=== PATIENT | female | born 1960 | race Caucasian/White ===

== ENCOUNTER → 2016-09-23 | Outpatient (CLI) | payer OTHER ==
--- NOTE | 2016-09-23 13:47 | BD ---
EXAMINATION TYPE: MG DEXA axial skeleton. DATE OF EXAM: 09/23/2016 COMPARISON: NONE CLINICAL HISTORY: Postmenopausal female. Height: 68.5 IN Weight: 237 LBS FRAX RISK QUESTIONS: Alcohol (3 or more units per day): NO Family History (Parent hip fracture): NO Glucocorticoids (More than 3mos): PT TAKES METHOTREXATE FOR 3 YRS (Ex: prednisone, prednisolone, methylprednisolone, dexamethasone, and hydrocortisone). History of Fracture in Adulthood: YES TOE/FINGER AGE [age] Secondary Osteoporosis: 1. Type 1 Diabetes: NO 2. Hyperthyroidism: NO 3. Menopause before 45: YES AGE 31 4. Malnutrition: NO 5. Chronic liver disease: NO Rheumatoid Arthritis: NO Current Tobacco Use: NO RISK FACTORS HISTORY OF: Active: YES Postmenopausal woman: AGE 31 PARTIAL HYSTERECTOMY MEDICATIONS: Prednisone or other steroids: PT TAKES METHOTREXATE FOR 3 YEARS How Lon YRS Additional Medications: METHOTREXATE, FOLIC ACID, METPROL, HcTZ,LORTAB EXAM MEASUREMENTS: Bone mineral densitometry was performed using the [employer] System. Bone mineral density as measured about the Lumbar spine is: ----- L1-L4(G/cm2): 1.757 T Score Values are as follows: ----- L2: 3.7 ----- L3: 5.1 ----- L4: 6.3 ----- L1-L4: 4.8 Bone mineral density BASELINE Bone mineral density about the R hip (g/cm2): 1.147 Bone mineral density about the L hip (g/cm2): 1.113 T Score values are as follows: -----R Neck: 0.8 -----L Neck: 0.5 -----R Total: 1.3 -----L Total: 1.2 Bone mineral density BASELINE IMPRESSION: NORMAL STUDY. 10 YEAR FRACTURE RISK: MAJOR OSTEOPOROTIC FRACTURE RISK: 8.6% HIP FRACTURE RISK: 0.1% NOTE: T-SCORE=SD OF THE YOUNG ADULT MEAN.
--- NOTE | 2016-09-24 08:53 | MM ---
Reason for exam: screening (asymptomatic). Last mammogram was performed 4 years ago. History: Patient is postmenopausal. Family history of premenopausal breast cancer in mother at age 39 and breast cancer in 3 maternal aunts. Physical Findings: A clinical breast exam by your physician is recommended on an annual basis and results should be correlated with mammographic findings. MG Screening Mammo w CAD Bilateral CC and MLO view(s) were taken. Prior study comparison: October 05, 2012, bilateral digital screening mammo w/CAD. October 23, 2010, bilateral digital screening mammo w/CAD. There are scattered fibroglandular densities. There is no discrete abnormality. No significant changes when compared with prior studies. ASSESSMENT: Negative, BI-RAD 1 RECOMMENDATION: Routine screening mammogram of both breasts in 1 year.
== END | disposition home or self-care (01) ==
LOC: RADMAMWWP 09:12
PROVIDERS: ATTEND Family Medicine
DX: Z12.31 Encounter for screening mammogram for malignant neoplasm of breast (principal); Z13.820 Encounter for screening for osteoporosis
CPT/HCPCS: 77080; G0202

== ENCOUNTER → 2017-05-19 | Outpatient (CLI) | payer OTHER ==
--- NOTE | 2017-05-19 16:59 | CT ---
EXAMINATION TYPE: CT sinus wo con DATE OF EXAM: 05/19/2017 COMPARISON: NONE HISTORY: Chronic sinusitis, cough CT DLP: 581.4 mGycm. Automated Exposure Control for Dose Reduction was Utilized. TECHNIQUE: CT scan of the sinuses is performed without contrast, axial images are obtained, coronal r eformatted images are also reviewed. FINDINGS: The paranasal sinuses are remarkable for mucosal thickening in the bilateral maxillary sin uses, ethmoid air cells and sphenoid sinus, no air-fluid levels. Ostiomeatal unit nearly obstructed b ilaterally due to soft tissue thickening. There is a jose a bullosa on the left. There is a deviated nasal septum. Visualized portion of mastoid air cells show no abnormal opacification. The globes are intact bilate rally. IMPRESSION: Findings suggest chronic sinusitis
--- NOTE | 2017-05-20 12:46 | XR ---
EXAMINATION TYPE: XR chest 2V DATE OF EXAM: 05/19/2017 COMPARISON: Prior chest x-ray 06/02/2015 HISTORY: Chronic sinusitis, cough TECHNIQUE: Frontal and lateral views of the chest are obtained. FINDINGS: Within the right mid lung there is a nodular density present measuring approximately 1 cm i n size superimposed over the anterior fourth rib. This is likely stable. There is no pleural effusio n or pneumothorax seen. The cardiac silhouette size is within normal limits. Patient is rotated. Th e osseous structures are intact. Surgical clips present in the upper abdomen. IMPRESSION: No acute cardiopulmonary process. Stable lung nodule.
== END | disposition home or self-care (01) ==
LOC: RADCTMAIN 16:18
PROVIDERS: ATTEND Physician Assistant
DX: R91.1 Solitary pulmonary nodule (principal); J01.90 Acute sinusitis, unspecified
CPT/HCPCS: 70486; 71046

== ENCOUNTER → 2018-01-19 | Outpatient (CLI) | payer OTHER ==
--- NOTE | 2018-01-20 13:38 | MM ---
Reason for exam: screening (asymptomatic). Last mammogram was performed 1 year and 4 months ago. History: Patient is postmenopausal. Family history of premenopausal breast cancer in mother at age 39 and breast cancer in 3 maternal aunts. Physical Findings: A clinical breast exam by your physician is recommended on an annual basis and results should be correlated with mammographic findings. MG Screening Mammo w CAD Bilateral CC and MLO view(s) were taken. Prior study comparison: September 23, 2016, bilateral MG screening mammo w CAD. October 05, 2012, bilateral digital screening mammo w/CAD. There are scattered fibroglandular densities. There are benign appearing round calcifications. There is no discrete abnormality. ASSESSMENT: Benign, BI-RAD 2 RECOMMENDATION: Routine screening mammogram of both breasts in 1 year.
== END | disposition home or self-care (01) ==
LOC: RADMAMWWP 16:18
PROVIDERS: ATTEND Family Medicine
DX: Z12.31 Encounter for screening mammogram for malignant neoplasm of breast (principal)
CPT/HCPCS: 77067

== ENCOUNTER 2019-09-26 12:28 | Emergency (ER) | payer BC, OTHER ==
[2019-09-26 12:35] VITALS: BP 160/70; PULSE 68; RESP 16; TEMP 98.8
[2019-09-26] MEDS ORDERED: LIDOCAINE 1% INJ 10MG/ML (20 ML MDV) SQ ONE (12:56)
--- NOTE | 2019-09-26 13:14 | ED ---
Fall HPI - General Chief Complaint: Fall Stated Complaint: fall, head injury Time Seen by Provider: 09/26/19 12:49 Source: patient Mode of arrival: wheelchair - History of Present Illness Initial Comments: Patient is a 59-year-old female presenting to the emergency department after a slip and fall and has a laceration to her left side of her face. Patient states she was getting her grandson a bath and there was a lot of bubbles in the bathroom, she went to pull the plug is why she is now down and fell forward hitting the left side of her face on a knob in the shower. Patient states she did not lose consciousness, she has a mild headache over the laceration. She denies any changes in vision, nausea, vomiting. Patient denies being on blood thinners. Bleeding is controlled at this time. She states her last tetanus vaccine was over 10 years ago. She has no further complaints. - Related Data Home Medications Medication Instructions Recorded Confirmed Aspirin 325 mg PO DAILY 10/12/14 06/06/15 Folic Acid 1 mg PO DAILY 10/12/14 06/05/15 Hydrocodone/Acetaminophen [Lortab 1 tab PO DIRECTED PRN 10/12/14 06/05/15 7.5-325 mg Tablet] Lisinopril-Hctz 20-25 mg 1 tab PO DAILY 10/12/14 06/05/15 [Zestoretic 20-25] metHOTREXate sodium [Methotrexate] 12.5 mg PO SA 10/12/14 06/05/15 DULoxetine HCL [Cymbalta] 60 mg PO HS 06/05/15 06/05/15 Krill Oil 500 mg PO DAILY 06/05/15 06/05/15 Metoprolol (Unknown Dose) 25 mg PO BID 06/05/15 06/06/15 Nitroglycerin Sl Tabs [Nitrostat] 0.4 mg PO DIRECTED PRN 06/05/15 06/05/15 Orphenadrine [Norflex] 100 mg PO Q12H PRN 06/05/15 06/05/15 Previous Rx's Medication Instructions Recorded Ibuprofen [Motrin] 600 mg PO Q6HR PRN #20 tab 10/12/14 Atorvastatin [Lipitor] 40 mg PO DAILY #60 tab 06/06/15 Allergies Allergy/AdvReac Type Severity Reaction Status Date / Time No Known Allergies Allergy Verified 09/26/19 12:35 Review of Systems ROS Statement: Those systems with pertinent positive or pertinent negative responses have been documented in the HPI. ROS Other: All systems not noted in ROS Statement are negative. Past Medical History Past Medical History: Hypertension, Rheumatoid Arthritis (RA) Additional Past Medical History / Comment(s): LOWER BACK RA History of Any Multi-Drug Resistant Organisms: None Reported Past Surgical History: Cholecystectomy, Hysterectomy Past Psychological History: No Psychological Hx Reported Past Alcohol Use History: Occasional General Exam - General Exam Comments Initial Comments: GENERAL: Patient is well-developed and well-nourished. Patient is nontoxic and in no acute distress. HEAD: Atraumatic, normocephalic. EYES: Pupils equal round and reactive to light, extraocular movements intact, sclera anicteric, conjunctiva are normal. Eyelids were unremarkable. ENT: TMs normal, nares patent, oropharynx clear without exudates. Moist mucous membranes. NECK: Normal range of motion, supple without lymphadenopathy or JVD. LUNGS: Unlabored respirations. Breath sounds clear to auscultation bilaterally and equal. No wheezes rales or rhonchi. HEART: Regular rate and rhythm without murmurs, rubs or gallops. ABDOMEN: Soft, nontender, normoactive bowel sounds. No guarding, no rebound. No masses appreciated. : Deferred MUSCULOSKELETAL: Normal extremities with adequate strength and normal range of motion, no pitting or edema. No clubbing or cyanosis. NEUROLOGICAL: Patient is alert and oriented x 3. Motor and sensory are also intact. Cranial nerves II through XII grossly intact. Normal speech, normal gait. Symmetrical smile. PSYCH: Normal mood, normal affect. SKIN: Warm, Dry, normal turgor, no rashes. Patient has a 6 cm laceration to the left temporal area, no active bleeding. Limitations: no limitations Course Vital Signs 09/26/19 12:33 Temperature 98.8 F Pulse Rate 68 Respiratory 16 Rate Blood Pressure 160/70 O2 Sat by Pulse 94 L Oximetry Medical Decision Making - Medical Decision Making Patient is a 59-year-old female presenting for a 6cm laceration on the left side of her face after slipping forward while kneeling down. There was no loss of consciousness, no vomiting, no changes in vision. She does have a very mild headache around the laceration. Patient's tetanus vaccine was updated today. Patient's wound was irrigated, closed with 10, 5-0 sutures, performed by MARGARITA Watkins. Patient tolerated procedure well. Patient is stable for discharge. She will have sutures removed in 7-10 days. She will follow-up with her PCP. Return parameters were discussed with the patient she verbalized understanding. Case discussed with Dr. Bustos. Disposition Clinical Impression: Fall, Laceration without foreign body of left cheek and temporomandibular area, initial encounter Disposition: HOME SELF-CARE Condition: Stable Instructions (If sedation given, give patient instructions): Care For Your Stitches (ED) Additional Instructions: Please return to the Emergency Department if symptoms worsen or any other concerns. Sutures need to be removed in 7-10 days. Keep area clean and dry. Is patient prescribed a controlled substance at d/c from ED?: No Referrals: Tro Galvan MD [Primary Care Provider] - 1-2 days
[2019-09-26] MEDS ORDERED: DIPH,PERTUS(ACELL)TETVAC-LF 0.5 ML VIAL IM ONE (13:38)
== END 2019-09-26 14:14 | disposition home or self-care (01) ==
LOC: EC 12:28
DX: S01.412A Laceration without foreign body of left cheek and temporomandibular area, initial encounter (principal); M06.9 Rheumatoid arthritis, unspecified; I10 Essential (primary) hypertension; Z79.82 Long term (current) use of aspirin; Z79.899 Other long term (current) drug therapy; W01.198A Fall on same level from slipping, tripping and stumbling with subsequent striking against other object, initial encounter; Y93.89 Activity, other specified; Y92.002 Bathroom of unspecified non-institutional (private) residence as the place of occurrence of the external cause; Z23 Encounter for immunization
CPT/HCPCS: 99283; 90471; 12014; 90715; J2001

== ENCOUNTER → 2021-08-02 | Outpatient (CLI) | payer BC ==
--- NOTE | 2021-08-03 15:15 | MM ---
Reason for Exam: Screening (asymptomatic). Last mammogram was performed 3 year(s) and 7 month(s) ago. Patient History: Menarche at age 11. First Full-Term at age 27. Left ovary removed at age 31. Right ovary removed at age 31. Hysterectomy at age 31. Postmenopausal. Maternal aunt had breast cancer at or over age 50. Maternal aunt had breast cancer under age 50. Maternal aunt had breast cancer at or over age 50. Mother had breast cancer, age 39. Risk Values: Marleni 5 year model risk: 3.0%. NCI Lifetime model risk: 13.2%. Prior Study Comparison: 10/05/2012 Bilateral Screening Mammogram, [facility]. 09/23/2016 Bilateral Screening Mammogram, [facility]. 01/19/2018 Bilateral Screening Mammogram, [facility]. Tissue Density: There are scattered fibroglandular densities. Findings: Analyzed By CAD. NATURAL NIPPLE PLACEMENT ASKEW BILATERALLY...NIP PROFILE IMAGES TAKEN There is a benign calcification within the left breast. No suspicious spiculated or lobular masses, clusters of microcalcifications, architectural distortion, or other secondary signs to radiographically apparent. Overall Assessment: Benign, BI-RAD 2 Management: Screening Mammogram of both breasts in 1 year. A clinical breast exam by your physician is recommended on an annual basis and results should be correlated with mammographic findings. Electronically signed and approved by: Marcello Sherwood D.O. Radiologis
== END | disposition home or self-care (01) ==
LOC: RADMAMWWP 12:50
PROVIDERS: ATTEND Family Medicine
DX: Z12.31 Encounter for screening mammogram for malignant neoplasm of breast (principal); Z80.3 Family history of malignant neoplasm of breast; Z78.0 Asymptomatic menopausal state
CPT/HCPCS: 77067

== ENCOUNTER → 2023-05-19 | Outpatient (CLI) | payer BC ==
--- NOTE | 2023-05-20 09:52 | MM ---
Reason for Exam: Screening (asymptomatic). Last mammogram was performed 1 year(s) and 9 month(s) ago. Patient History: Menarche at age 11. First Full-Term at age 27. Left ovary removed at age 31. Right ovary removed at age 31. Hysterectomy at age 31. Postmenopausal. Maternal aunt had breast cancer at or over age 50. Maternal aunt had breast cancer under age 50. Maternal aunt had breast cancer at or over age 50. Mother had breast cancer, age 39. Risk Values: Marleni 5 year model risk: 3.2%. NCI Lifetime model risk: 12.4%. Prior Study Comparison: 09/23/2016 Bilateral Screening Mammogram, [facility]. 01/19/2018 Bilateral Screening Mammogram, [facility]. 08/02/2021 Bilateral MG screening mammo w CAD, [facility]. Tissue Density: The breasts are almost entirely fatty. Findings: Analyzed By CAD. There is no suspicious group of microcalcifications or new suspicious mass. Overall Assessment: Negative, BI-RAD 1 Management: Screening Mammogram of both breasts in [address] [facility] will attempt to contact patient to return for supplemental views and ultrasound if indicated. Patient should continue monthly self-breast exams. A clinical breast exam by your physician is recommended on an annual basis. This exam should not preclude additional follow-up of suspicious palpable abnormalities. Note on Marleni scores and lifetime risk: 1. A Marleni score greater than 3% is considered moderate risk. If this is the case, consider specialist referral to assess eligibility for a risk reducing agent. 2. If overall lifetime risk for the development of breast cancer is 20% or higher, the patient may qualify for future screening with alternating mammogram and breast MRI. Electronically signed and approved by: Junior Smith DO
== END | disposition home or self-care (01) ==
LOC: RADMAMWWP 16:17
PROVIDERS: ATTEND Family Medicine
DX: Z12.31 Encounter for screening mammogram for malignant neoplasm of breast (principal); Z80.3 Family history of malignant neoplasm of breast; Z78.0 Asymptomatic menopausal state
CPT/HCPCS: 77067

== ENCOUNTER 2023-07-25 09:08 | Emergency (ER) | payer BC ==
[2023-07-25 11:01] VITALS: TEMP 97.5
[2023-07-25 11:02] LABS: Basophils % (A) 2 %; Eosinophils % (A) 3 %; HCT 46.9 % (34.0-46.0); HGB 15.3 gm/dL (11.4-16.0); Lymphocytes % (A) 35 %; MCH 29.8 pg (25.0-35.0); MCHC 32.5 g/dL (31.0-37.0); MCV 91.5 fL (80.0-100.0); Mean Platelet Volume 8.8; Monocytes % (A) 7 %; Neutrophils % (A) 51 %; Platelet Count 202 k/uL (150-450); RBC 5.12 m/uL (3.80-5.40); WBC 6.3 k/uL (3.8-10.6)
[2023-07-25] MEDS: SODIUM CHLORIDE 0.9% 1,000 ML IV STA (11:02)
[2023-07-25] MEDS: ONDANSETRON 4 MG/2 ML VIAL IVP STA (11:02)
[2023-07-25 11:03] LABS: Basophils # (A) 0.1 k/uL (0-0.2); Eosinophils # (A) 0.2 k/uL (0-0.7); Lymphocytes # (A) 2.2 k/uL (1.0-4.8); Monocytes # (A) 0.5 k/uL (0-1.0); Neutrophils # (A) 3.2 k/uL (1.3-7.7)
[2023-07-25 11:14] LABS: Amorphous Sediment,Urine Occasional /hpf; Appearance,Urine Cloudy (Clear); Bacteria,Urine Occasional /hpf; Bilirubin,Urine Negative (Negative); Blood,Urine Negative (Negative); Color,Urine Colorless; Glucose,Urine (UA) Negative (Negative); INR 0.9 (<1.2); Ketones,Urine Negative (Negative); Leukocyte Esterase,Urine Large (Negative); Mucus,Urine Occasional /hpf; Nitrite,Urine Negative (Negative); PH, Urine 5.5 (5.0-8.0); Partial Thromboplastin Time 23.6 sec (22.0-30.0); Protein,Urine Negative (Negative); Prothrombin Time 10.1 sec (10.0-12.5); RBC,Urine 4 /hpf (0-5); Specific Gravity,Urine 1.016 (1.001-1.035); Squamous Epithelial Cell,Urine 17 /hpf (0-4); Urobilinogen,Urine <2.0 mg/dL (<2.0); WBC,Urine 20 /hpf (0-5)
--- NOTE | 2023-07-25 11:51 | CT ---
EXAMINATION TYPE: CT brain wo con CT DLP: 1162.4 mGycm, Automated exposure control for dose reduction was used. DATE OF EXAM: 07/25/2023 11:30 AM COMPARISON: 12/16/2009. CLINICAL INDICATION:Female, 63 years old with history of weakness, Weakness, dizziness, pt seeing spo ts when eyes closed TECHNIQUE: Brain: Axial CT images of the brain were obtained with coronal and sagittal reformats created and rev iewed. Contrast used: None. Oral contrast used: None. FINDINGS: Brain: Extra-axial spaces: No abnormal extra-axial fluid collections. Ventricular system: Dilatation in proportion to cerebral atrophy. Cerebral parenchyma: Cerebral atrophy. No acute intraparenchymal hemorrhage or mass effect. The gordillo -white junction is well differentiated. Scattered hypoattenuating areas are seen within the white mat ter. Cerebellum: Unremarkable. Mass effect: No evidence of midline shift. Intracranial vasculature: Atherosclerotic calcifications of the intracranial vessels. Soft tissues: Normal. Calvarium/osseous structures: No depressed skull fracture. Paranasal sinuses and mastoid air cells: Mild scattered paranasal sinus disease. Visualized orbits: Orbital contents are intact. IMPRESSION: 1. No acute intracranial process. 2. Nonspecific white matter changes, likely secondary to chronic small vessel ischemic disease.
--- NOTE | 2023-07-25 11:53 | XR ---
EXAMINATION TYPE: XR chest 2V DATE OF EXAM: 07/25/2023 11:33 AM CLINICAL INDICATION:Female, 63 years old with history of Weakness; [facility] COMPARISON: Chest radiographs from 10/30/2020 TECHNIQUE: XR chest 2V Frontal and lateral views of the chest. FINDINGS: Lungs/Pleura: There is no evidence of pleural effusion, focal consolidation, or pneumothorax. Pulmonary vascularity: Unremarkable. Heart/mediastinum: Cardiomediastinal silhouette is unremarkable. Musculoskeletal: No acute osseous pathology. IMPRESSION: No acute cardiopulmonary disease/process.
[2023-07-25 12:02] VITALS: RESP 16
[2023-07-25 12:03] LABS: ALT 37 U/L (4-34); AST 37 U/L (14-36); African American GFR (CKD) >90 (>60 ml/min/1.73 sqM); Albumin 3.8 g/dL (3.5-5.0); Alkaline Phosphatase 130 U/L (38-126); Anion Gap 2 mmol/L; Blood Urea Nitrogen 11 mg/dL (7-17); Calcium 8.8 mg/dL (8.4-10.2); Carbon Dioxide 30 mmol/L (22-30); Chloride 110 mmol/L (98-107); Glucose 75 mg/dL (74-99); NT-Pro-B-Type Natriuretic Pept 688 pg/mL; Non-African American GFR(CKD) >90 (>60 ml/min/1.73 sqM); Potassium 3.6 mmol/L (3.5-5.1); Sodium 142 mmol/L (137-145); Total Bilirubin 0.7 mg/dL (0.2-1.3); Total Protein 6.7 g/dL (6.3-8.2)
--- NOTE | 2023-07-25 13:09 | ED ---
General Adult HPI - General Chief complaint: Dizziness Stated complaint: lightheaded,ankle swelling Time Seen by Provider: 07/25/23 10:35 Source: patient, RN notes reviewed, old records reviewed Mode of arrival: ambulatory Limitations: no limitations - History of Present Illness Initial comments: Patient is a 63-year-old female presents emergency department with multiple nonspecific complaints. Was sent by PCP. Has noticed a 13 pound weight gain over the last 1 to 2 weeks. Some mild foot and ankle edema, as well as some lightheadedness that she had this morning. Also had some blurry vision this morning which is since resolved. Presents for further evaluation at this time. Denies any significant headache. States her head of occasionally feels light and she feels a coldness sensation over her forehead and upper legs. Denies any chest pain or shortness of breath. Denies abdominal pain, nausea, vomiting. States she believes she has a sinus infection that she does endorse some pressure and has a history of these. Presents for further evaluation at this time. Denies sore throat, cough. Denies fevers or chills. - Related Data Home Medications Medication Instructions Recorded Confirmed Lisinopril-Hctz 20-25 mg 1 tab PO DAILY 10/12/14 07/25/23 [Zestoretic 20-25] Aspirin 162.5 mg PO DAILY 07/25/23 07/25/23 Cyanocobalamin [Vitamin B-12] 500 mcg PO DAILY 07/25/23 07/25/23 Magnesium(Unknown Dose) 1 tab PO DAILY 07/25/23 07/25/23 Vitamin D3(Unknown Dose) 1 tab PO DAILY 07/25/23 07/25/23 Previous Rx's Medication Instructions Recorded Amoxic-Pot Clav 875-125Mg 1 tab PO Q12HR 10 Days #20 tab 07/25/23 [Augmentin 875-125] Allergies Allergy/AdvReac Type Severity Reaction Status Date / Time atorvastatin [From Lipitor] AdvReac Muscle pain Verified 07/25/23 10:49 ropinirole [From Requip] AdvReac Chest Pain Verified 07/25/23 10:49 Review of Systems ROS Statement: Those systems with pertinent positive or pertinent negative responses have been documented in the HPI. Review of Systems: CONST: Denies fever EYES: Denies blurry vision ENT: Denies nasal congestion C/V: Denies Chest pain RESP: Denies shortness of breath GI: Denies abdominal pain : Denies dysuria SKIN: Denies rash. MSK: Denies joint pain. NEURO: Denies headache ROS Other: All systems not noted in ROS Statement are negative. Past Medical History Past Medical History: Hypertension, Rheumatoid Arthritis (RA) Additional Past Medical History / Comment(s): LOWER BACK RA History of Any Multi-Drug Resistant Organisms: None Reported Past Surgical History: Cholecystectomy, Heart Catheterization, Hysterectomy Past Psychological History: No Psychological Hx Reported Smoking Status: Never smoker Past Alcohol Use History: Occasional Past Drug Use History: None Reported General Exam - General Exam Comments Initial Comments: General: Appears in no acute distress. HEAD: Normal with no signs of head trauma. EYES: PERRLA, EOMI, conjunctiva normal, no discharge. Pulls are 3 mm and equal bilaterally. ENT: Hearing grossly intact, normal oropharynx. RESPIRATORY: Clear breath sounds bilaterally. No wheezes, rales, or rhonchi. C/V: Regular rate and rhythm. S1 and S2 auscultated, mild dependent pitting edema in the bilateral lower extremities that is symmetrical, peripheral pulses 2+ and intact throughout ABD: Abd is soft, nontender, nondistended EXT: Normal range of motion, no obvious deformity SKIN: No rashes or lesions observed on exposed skin. NEURO: Alert and oriented x 4. Cranial nerves II-XII intact. No focal sensory or strength deficits. NIH of 0. GCS 15. Normal cerebellar function as evident by normal finger-nose testing and [id number] testing. Limitations: no limitations Course Vital Signs 07/25/23 07/25/23 07/25/23 09:24 10:02 11:49 Temperature 97.5 F L Pulse Rate 55 L 63 53 L Respiratory 20 18 16 Rate Blood Pressure 177/89 177/93 158/72 O2 Sat by Pulse 99 98 98 Oximetry 07/25/23 13:00 Temperature Pulse Rate 50 L Respiratory 16 Rate Blood Pressure 169/67 O2 Sat by Pulse 98 Oximetry Medical Decision Making - Medical Decision Making Was pt. sent in by a medical professional or institution (, PA, APPEALS ASSISTANT, urgent care, hospital, or fci...) When possible be specific @ -Sent by PCP for evaluation. Did you speak to anyone other than the patient for history (EMS, parent, family, police, friend...)? What history was obtained from this source @ -No Did you review nursing and triage notes (agree or disagree)? Why? @ -I reviewed and agree with nursing and triage notes Were old charts reviewed (outside hosp., previous admission, EMS record, old EKG, old radiological studies, urgent care reports/EKG's, fci records)? Report findings @ -No old charts were reviewed Differential Diagnosis (chest pain, altered mental status, abdominal pain women, abdominal pain men, vaginal bleeding, weakness, fever, dyspnea, syncope, headache, dizziness, GI bleed, back pain, seizure, CVA, palpatations, mental health, musculoskeletal)? @ -Differential Weakness: Hypoglycemia, shock, sepsis, hyponatremia, anemia, infection, RI, ETOH, adverse medicine reaction, overdose, stroke, this is not meant to be an all-inclusive list. EKG interpreted by me (3pts min.). @ -As above X-rays interpreted by me (1pt min.). @ -Chest x-ray reveals no obvious acute cardiopulmonary process. CT interpreted by me (1pt min.). @ -CT brain revealed no obvious acute intracranial process. Just chronic changes. U/S interpreted by me (1pt. min.). @ -None done What testing was considered but not performed or refused? (CT, X-rays, U/S, labs)? Why? @ -None What meds were considered but not given or refused? Why? @ -None Did you discuss the management of the patient with other professionals (professionals i.e. , PA, APPEALS ASSISTANT, lab, RT, psych nurse, social worker delinquency prevention, tap and die maker technician, teacher, information systems security officer, leather case finisher)? Give summary @ -No Was smoking cessation discussed for >3mins.? @ -No Was critical care preformed (if so, how long)? @ -No Were there social determinants of health that impacted care today? How? (Homel essness, low income, unemployed, alcoholism, drug addiction, transportation, low edu. Level, literacy, decrease access to med. care, assisted, rehab)? @ -No Was there de-escalation of care discussed even if they declined (Discuss DNR or withdrawal of care, Hospice)? DNR status @ -No What co-morbidities impacted this encounter? (DM, HTN, Smoking, COPD, CAD, Cancer, CVA, ARF, Chemo, Hep., AIDS, mental health diagnosis, sleep apnea, morbid obesity)? @ -None Was patient admitted / discharged? Hospital course, mention meds given and route, prescriptions, significant lab abnormalities, going to OR and other pertinent info. @ -Patient presents with sinus congestion as well and lightheadedness, and episode of blurry vision earlier, and some weird paresthesias which appear to have resolved. Was sent by PCP for evaluation. We discussed at length the workup with the patient we will obtain broad workup as well as CT brain. NIH is 0. No obvious focal deficits at this time. She was in agreement this plan. Vital signs are within acceptable limits. Patient's laboratory studies returned unremarkable. Urinalysis is contaminated. Troponin undetectable. BNP within normal limits for age. Very slightly elevated LFTs and alk phos which is insignificant borderline normal. Chest x- ray and CT brain revealed no obvious acute process. EKG shows no signs of acute ischemia. On reevaluation, patient is feeling somewhat improved. We discussed her workup. I have no clear etiology for current symptoms. It is possible her sinus infection is affecting her. Patient will be given a dose of a steroid. Recommended wrapping her lower extremities with Win bandages or obtaining compression socks for dependent edema. Strict follow-up with PCP. She was in agreement this plan. I did offer observation admission however she did decline and would like to go home. I instructed the patient to follow up with their PCP in the next 1-3 days. I explained that the patient should return to the emergency department if they experience any worsening symptoms. Strict return precautions were discussed with the patient. The patient expressed understanding of these instructions. I answered all questions that the patient had. The patient was discharged home in good condition with their prescriptions and follow up information. Undiagnosed new problem with uncertain prognosis? @ -No Drug Therapy requiring intensive monitoring for toxicity (Heparin, Nitro, Insulin, Cardizem)? @ -No Were any procedures done? @ -No Diagnosis/symptom? @ - Dependent edema, lightheadedness, sinus congestion Acute, or Chronic, or Acute on Chronic? @ -Acute Uncomplicated (without systemic symptoms) or Complicated (systemic symptoms)? @ -Complicated Side effects of treatment? @ -No Exacerbation, Progression, or Severe Exacerbation? @ -No Poses a threat to life or bodily function? How? (Chest pain, USA, RI, pneumonia, PE, COPD, DKA, ARF, appy, cholecystitis, CVA, Diverticulitis, Homicidal, Suicidal, threat to staff... and all critical care pts) @ -Unlikely - Lab Data Result diagrams: 07/25/23 10:35 07/25/23 10:35 Lab Results 07/25/23 07/25/23 07/25/23 Range/Units 10:35 10:35 10:35 WBC 6.3 (3.8-10.6) k/uL RBC 5.12 (3.80-5.40) m/uL Hgb 15.3 (11.4-16.0) gm/dL Hct 46.9 H (34.0-46.0) % MCV 91.5 (80.0-100.0) fL MCH 29.8 (25.0-35.0) pg MCHC 32.5 (31.0-37.0) g/dL RDW 13.0 (11.5-15.5) % Plt Count 202 (150-450) k/uL MPV 8.8 Neutrophils % 51 % Lymphocytes % 35 % Monocytes % 7 % Eosinophils % 3 % Basophils % 2 % Neutrophils # 3.2 (1.3-7.7) k/uL Lymphocytes # 2.2 (1.0-4.8) k/uL Monocytes # 0.5 (0-1.0) k/uL Eosinophils # 0.2 (0-0.7) k/uL Basophils # 0.1 (0-0.2) k/uL PT 10.1 (10.0-12.5) sec INR 0.9 (<1.2) APTT 23.6 (22.0-30.0) sec Sodium (137-145) mmol/L Potassium (3.5-5.1) mmol/L Chloride (98-107) mmol/L Carbon Dioxide (22-30) mmol/L Anion Gap mmol/L BUN (7-17) mg/dL Creatinine (0.52-1.04) mg/dL Est GFR (CKD-EPI)AfAm (>60 ml/min/1.73 sqM) Est GFR (CKD-EPI)NonAf (>60 ml/min/1.73 sqM) Glucose (74-99) mg/dL Plasma Lactic Acid Agustin (0.7-2.0) mmol/L Calcium (8.4-10.2) mg/dL Magnesium (1.6-2.3) mg/dL Total Bilirubin (0.2-1.3) mg/dL AST (14-36) U/L ALT (4-34) U/L Alkaline Phosphatase (38-126) U/L Troponin I (0.000-0.034) ng/mL NT-Pro-B Natriuret Pep pg/mL Total Protein (6.3-8.2) g/dL Albumin (3.5-5.0) g/dL TSH (0.465-4.680) mIU/L Urine Color Colorless Urine Appearance Cloudy H (Clear) Urine pH 5.5 (5.0-8.0) Ur Specific [place] 1.016 (1.001-1.035) Urine Protein Negative (Negative) Urine Glucose (UA) Negative (Negative) Urine Ketones Negative (Negative) Urine Blood Negative (Negative) Urine Nitrite Negative (Negative) Urine Bilirubin Negative (Negative) Urine Urobilinogen <2.0 (<2.0) mg/dL Ur Leukocyte Esterase Large H (Negative) Urine RBC 4 (0-5) /hpf Urine WBC 20 H (0-5) /hpf Ur Squamous Epith Cells 17 H (0-4) /hpf Amorphous Sediment Occasional H (None) /hpf Urine Bacteria Occasional H (None) /hpf Urine Mucus Occasional H (None) /hpf Influenza Type A (PCR) (Not Detectd) Influenza Type B (PCR) (Not Detectd) RSV (PCR) (Not Detectd) SARS-CoV-2 (PCR) (Not Detectd) 07/25/23 07/25/23 07/25/23 Range/Units 10:35 10:35 10:35 WBC (3.8-10.6) k/uL RBC (3.80-5.40) m/uL Hgb (11.4-16.0) gm/dL Hct (34.0-46.0) % MCV (80.0-100.0) fL MCH (25.0-35.0) pg MCHC (31.0-37.0) g/dL RDW (11.5-15.5) % Plt Count (150-450) k/uL MPV Neutrophils % % Lymphocytes % % Monocytes % % Eosinophils % % Basophils % % Neutrophils # (1.3-7.7) k/uL Lymphocytes # (1.0-4.8) k/uL Monocytes # (0-1.0) k/uL Eosinophils # (0-0.7) k/uL Basophils # (0-0.2) k/uL PT (10.0-12.5) sec INR (<1.2) APTT (22.0-30.0) sec Sodium 142 (137-145) mmol/L Potassium 3.6 (3.5-5.1) mmol/L Chloride 110 H (98-107) mmol/L Carbon Dioxide 30 (22-30) mmol/L Anion Gap 2 mmol/L BUN 11 (7-17) mg/dL Creatinine 0.62 (0.52-1.04) mg/dL Est GFR (CKD-EPI)AfAm >90 (>60 ml/min/1.73 sqM) Est GFR (CKD-EPI)NonAf >90 (>60 ml/min/1.73 sqM) Glucose 75 (74-99) mg/dL Plasma Lactic Acid Agustin 1.3 (0.7-2.0) mmol/L Calcium 8.8 (8.4-10.2) mg/dL Magnesium 2.0 (1.6-2.3) mg/dL Total Bilirubin 0.7 (0.2-1.3) mg/dL AST 37 H (14-36) U/L ALT 37 H (4-34) U/L Alkaline Phosphatase 130 H (38-126) U/L Troponin I <0.012 (0.000-0.034) ng/mL NT-Pro-B Natriuret Pep 688 pg/mL Total Protein 6.7 (6.3-8.2) g/dL Albumin 3.8 (3.5-5.0) g/dL TSH 2.280 (0.465-4.680) mIU/L Urine Color Urine Appearance (Clear) Urine pH (5.0-8.0) Ur Specific [place] (1.001-1.035) Urine Protein (Negative) Urine Glucose (UA) (Negative) Urine Ketones (Negative) Urine Blood (Negative) Urine Nitrite (Negative) Urine Bilirubin (Negative) Urine Urobilinogen (<2.0) mg/dL Ur Leukocyte Esterase (Negative) Urine RBC (0-5) /hpf Urine WBC (0-5) /hpf Ur Squamous Epith Cells (0-4) /hpf Amorphous Sediment (None) /hpf Urine Bacteria (None) /hpf Urine Mucus (None) /hpf Influenza Type A (PCR) (Not Detectd) Influenza Type B (PCR) (Not Detectd) RSV (PCR) (Not Detectd) SARS-CoV-2 (PCR) (Not Detectd) 07/25/23 Range/Units 10:49 WBC (3.8-10.6) k/uL RBC (3.80-5.40) m/uL Hgb (11.4-16.0) gm/dL Hct (34.0-46.0) % MCV (80.0-100.0) fL MCH (25.0-35.0) pg MCHC (31.0-37.0) g/dL RDW (11.5-15.5) % Plt Count (150-450) k/uL MPV Neutrophils % % Lymphocytes % % Monocytes % % Eosinophils % % Basophils % % Neutrophils # (1.3-7.7) k/uL Lymphocytes # (1.0-4.8) k/uL Monocytes # (0-1.0) k/uL Eosinophils # (0-0.7) k/uL Basophils # (0-0.2) k/uL PT (10.0-12.5) sec INR (<1.2) APTT (22.0-30.0) sec Sodium (137-145) mmol/L Potassium (3.5-5.1) mmol/L Chloride (98-107) mmol/L Carbon Dioxide (22-30) mmol/L Anion Gap mmol/L BUN (7-17) mg/dL Creatinine (0.52-1.04) mg/dL Est GFR (CKD-EPI)AfAm (>60 ml/min/1.73 sqM) Est GFR (CKD-EPI)NonAf (>60 ml/min/1.73 sqM) Glucose (74-99) mg/dL Plasma Lactic Acid Agustin (0.7-2.0) mmol/L Calcium (8.4-10.2) mg/dL Magnesium (1.6-2.3) mg/dL Total Bilirubin (0.2-1.3) mg/dL AST (14-36) U/L ALT (4-34) U/L Alkaline Phosphatase (38-126) U/L Troponin I (0.000-0.034) ng/mL NT-Pro-B Natriuret Pep pg/mL Total Protein (6.3-8.2) g/dL Albumin (3.5-5.0) g/dL TSH (0.465-4.680) mIU/L Urine Color Urine Appearance (Clear) Urine pH (5.0-8.0) Ur Specific [place] (1.001-1.035) Urine Protein (Negative) Urine Glucose (UA) (Negative) Urine Ketones (Negative) Urine Blood (Negative) Urine Nitrite (Negative) Urine Bilirubin (Negative) Urine Urobilinogen (<2.0) mg/dL Ur Leukocyte Esterase (Negative) Urine RBC (0-5) /hpf Urine WBC (0-5) /hpf Ur Squamous Epith Cells (0-4) /hpf Amorphous Sediment (None) /hpf Urine Bacteria (None) /hpf Urine Mucus (None) /hpf Influenza Type A (PCR) Not Detected (Not Detectd) Influenza Type B (PCR) Not Detected (Not Detectd) RSV (PCR) Not Detected (Not Detectd) SARS-CoV-2 (PCR) Not Detected (Not Detectd) - EKG Data -: EKG Interpreted by Me EKG Comments: 12-lead Electrocardiogram Interpretation Note EKG was reviewed and interpreted by myself. 12-lead ECG performed at 0941 is interpreted by me as revealing sinus bradycardia at a rate of 49 beats per minute. [place] is normal. OH interval is 166 ms, QRS duration is 102 ms, QTc is 409 ms.. There were no ST or T wave abnormalities to suggest myocardial ischemia or injury. R wave progression across the precordium was satisfactory. By my interpretation this EKG is non-diagnostic for acute ischemia. Disposition Clinical Impression: Dependent edema, Lightheadedness, Sinus congestion Disposition: HOME SELF-CARE Condition: Good Instructions (If sedation given, give patient instructions): Dizziness (ED) Prescriptions: Amoxic-Pot Clav 875-125Mg [Augmentin 875-125] 1 tab PO Q12HR 10 Days #20 tab Is patient prescribed a controlled substance at d/c from ED?: No Referrals: Tor Galvan MD [Primary Care Provider] - 1-2 days Time of Disposition: 13:09
[2023-07-25] MEDS: DEXAMETHASONE SOD PHOSPHATE 4 MG/ML 1 ML VIAL IVP STA (13:16)
[2023-07-25] MEDS: AMOXIC-POT CLAV 875-125MG 1 EACH TAB PO STA (13:16)
[2023-07-25 14:01] VITALS: BP 169/67; PULSE 50
== END 2023-07-25 13:30 | disposition home or self-care (01) ==
LOC: EC 09:08
DX: R42 Dizziness and giddiness (principal); R60.0 Localized edema; J34.89 Other specified disorders of nose and nasal sinuses; R00.1 Bradycardia, unspecified; Z88.8 Allergy status to other drugs, medicaments and biological substances
CPT/HCPCS: 36415; 93005; 83880; 80053; 83605; 83735; 84443; 84484; 85025; 85610; 85730; 81001; 87636; 71046; 70450; 99285; 96374; 96375; 96361; J1100; J2405

== ENCOUNTER 2023-10-01 14:22 | Observation (INO) | payer BC ==
--- NOTE | 2023-10-01 14:49 | ED ---
Arrhythmia/Palpitations HPI - General Source: patient, RN notes reviewed Mode of arrival: ambulatory Limitations: no limitations <Raisa Klein - Last Filed: 10/01/23 14:47> - General Source: patient, family, RN notes reviewed Mode of arrival: ambulatory Limitations: no limitations <Yair Goyal - Last Filed: 10/01/23 20:14> - General Chief Complaint: Arrhythmia/Palpitations Stated Complaint: Heart Palpitations/Leg Swelling Time Seen by Provider: 10/01/23 14:47 - History of Present Illness Initial Comments: Quick Note: This is a 63-year-old female who presents to the emergency department for swelling in her extremities and palpitations. States that she has been dealing with swelling in her extremities and elevated blood pressure for several weeks. She has been following up with Dr. Olivas, cardiology and has tried different medications. They most recently tried her on Lasix, but states that the swelling was not going down. Yesterday she started to develop palpitations. Denies any chest pain or shortness of breath. (Raisa Klein) Patient is a 63-year-old female presenting to the emergency department with palpitations and edema. Patient has had recent problems with her blood pressure. Recently started on hydralazine and Lasix. Patient has been on pot assium replacement previously. Patient is having palpitations today. Patient did speak with her doctor, Dr. Flores who recommended she come to the emergency department. (Yair Goyal) - Related Data Home Medications Medication Instructions Recorded Confirmed Lisinopril-Hctz 20-25 mg 1 tab PO DAILY 10/12/14 10/01/23 [Zestoretic 20-25] Cyanocobalamin [Vitamin B-12] 500 mcg PO DAILY 07/25/23 10/01/23 Cholecalciferol (Vitamin D3) 50 mcg PO DAILY 10/01/23 10/01/23 [Vitamin D3 (50 Mcg = 2000 Iu)] Furosemide [Lasix] 20 mg PO DAILY 10/01/23 10/01/23 Magnesium 250 mg PO DAILY 10/01/23 10/01/23 Potassium Chloride ER [K-Dur 10] 10 meq PO DAILY 10/01/23 10/01/23 hydrALAZINE HCL [Apresoline] 50 mg PO TID-W/MEALS 10/01/23 10/01/23 Allergies Allergy/AdvReac Type Severity Reaction Status Date / Time atorvastatin [From Lipitor] AdvReac Muscle pain Verified 10/01/23 17:44 ropinirole [From Requip] AdvReac Chest Pain Verified 10/01/23 17:44 Review of Systems ROS Other: All systems not noted in ROS Statement are negative. <Raisa Klein - Last Filed: 10/01/23 14:47> ROS Other: All systems not noted in ROS Statement are negative. Constitutional: Denies: fever Eyes: Denies: eye pain ENT: Denies: ear pain Respiratory: Denies: dyspnea Cardiovascular: Reports: palpitations, edema. Denies: chest pain Endocrine: Reports: fatigue Gastrointestinal: Denies: abdominal pain <Yair Goyal - Last Filed: 10/01/23 20:14> ROS Statement: Those systems with pertinent positive or pertinent negative responses have been documented in the HPI. Past Medical History Past Medical History: Hypertension, Rheumatoid Arthritis (RA) Additional Past Medical History / Comment(s): LOWER BACK RA History of Any Multi-Drug Resistant Organisms: None Reported Past Surgical History: Cholecystectomy, Heart Catheterization, Hysterectomy Past Psychological History: No Psychological Hx Reported Smoking Status: Never smoker Past Alcohol Use History: Occasional Past Drug Use History: None Reported <Raisa Klein - Last Filed: 10/01/23 14:47> General Exam Limitations: no limitations <Raisa Klein - Last Filed: 10/01/23 14:47> Limitations: no limitations General appearance: alert, in no apparent distress Head exam: Present: normocephalic Eye exam: Present: normal appearance Neck exam: Present: normal inspection Respiratory exam: Present: normal lung sounds bilaterally Cardiovascular Exam: Present: regular rate, normal rhythm, normal heart sounds GI/Abdominal exam: Present: soft. Absent: tenderness Extremities exam: Present: pedal edema. Absent: calf tenderness Neurological exam: Present: alert Psychiatric exam: Present: normal affect, normal mood Skin exam: Present: normal color <Yair Goyal - Last Filed: 10/01/23 20:14> - General Exam Comments Initial Comments: Visual Physical Exam Vital signs reviewed General: Well-appearing, nontoxic, no acute distress. Head: Normocephalic, atraumatic Eyes: PERRLA, EOMI ENT: Airway patent Chest: Nonlabored breathing Skin: No visual rash, normal skin tone Neuro: Alert and oriented 3 Musculoskeletal: No gross abnormalities (Raisa Klein) Course Vital Signs 10/01/23 10/01/23 10/01/23 14:32 16:36 18:12 Temperature 98 F 97.7 F 98.5 F Pulse Rate 80 71 66 Respiratory 18 18 16 Rate Blood Pressure 132/61 153/71 151/61 O2 Sat by Pulse 98 96 99 Oximetry 10/01/23 19:57 Temperature Pulse Rate 71 Respiratory 16 Rate Blood Pressure 164/69 O2 Sat by Pulse 96 Oximetry EKG Findings - EKG Results: EKG: interpreted by ERMD (Nonspecific ST-T), sinus rhythm, normal axis, normal QRS <Yair Goyal - Last Filed: 10/01/23 20:14> Medical Decision Making <Raisa Klein - Last Filed: 10/01/23 14:47> - Lab Data Result diagrams: 10/01/23 14:50 10/01/23 14:50 <Yair Goyal - Last Filed: 10/01/23 20:14> - Medical Decision Making I performed the QuickNote portion of this chart. Signed Raisa Klein PA-C. (Raisa Klein) Was pt. sent in by a medical professional or institution ([facility], [facility], urgent care, hospital, or [facility]...) When possible be specific @ -No Did you speak to anyone other than the patient for history (EMS, parent, family, police, friend...)? What history was obtained from this source @ -Is present and also provides history of patient having problems with edema so severe for her that she has difficulty with walking Did you review nursing and triage notes (agree or disagree)? Why? @ -I reviewed and agree with nursing and triage notes Were old charts reviewed (outside hosp., previous admission, EMS record, old EKG, old radiological studies, urgent care reports/EKG's, [facility] records)? Report findings @ -No old charts were reviewed Differential Diagnosis (chest pain, altered mental status, abdominal pain women, abdominal pain men, vaginal bleeding, weakness, fever, dyspnea, syncope, headach e, dizziness, GI bleed, back pain, seizure, CVA, palpatations, mental health, musculoskeletal)? @ -Differential Palpitations Ventricular arrhythmias, atrial arrhythmias, myocardial infarction, anemia, thyrotoxicosis, electrolyte imbalance, hypokalemia, pulmonary embolism, pulmonary disease, drugs, alcohol, anxiety, stress.... This is not meant to be an all-inclusive list. EKG interpreted by me (3pts min.). @ -As above X-rays interpreted by me (1pt min.). @ -Chest x-ray shows no acute process CT interpreted by me (1pt min.). @ -None done U/S interpreted by me (1pt. min.). @ -None done What testing was considered but not performed or refused? (CT, X-rays, U/S, labs)? Why? @ -None What meds were considered but not given or refused? Why? @ -None Did you discuss the management of the patient with other professionals (professionals i.e. , PA, [facility], lab, RT, psych nurse, rn social work, bingo floater, teacher, anti air warfare operations officer, comp field case manager)? Give summary @ -Case discussed with practitioner Cindy Carl will admit covering Dr. Gant, who will admit for Dr. Galvan Was smoking cessation discussed for >3mins.? @ -No Was critical care preformed (if so, how long)? @ -No Were there social determinants of health that impacted care today? How? (Homelessness, low income, unemployed, alcoholism, drug addiction, transportation, low edu. Level, literacy, decrease access to med. care, care home, rehab)? @ -No Was there de-escalation of care discussed even if they declined (Discuss DNR or withdrawal of care, Hospice)? DNR status @ -No What co-morbidities impacted this encounter? (DM, HTN, Smoking, COPD, CAD, Cancer, CVA, ARF, Chemo, Hep., AIDS, mental health diagnosis, sleep apnea, morbid obesity)? @ -None Was patient admitted / discharged? Hospital course, mention meds given and route, prescriptions, significant lab abnormalities, going to OR and other pertinent info. @ -Patient reevaluated and still complains of leg edema without change. Patient does have continued mild leg edema. Still no calf tenderness. Patient still complains of palpitations. Patient does have hypokalemia and is uncomfortable with discharge home. Patient will be admitted. Admission orders written. Undiagnosed new problem with uncertain prognosis? @ -No Drug Therapy requiring intensive monitoring for toxicity (Heparin, Nitro, Insulin, Cardizem)? @ -No Were any procedures done? @ -No Diagnosis/symptom? @ -Palpitations, edema, hypokalemia Acute, or Chronic, or Acute on Chronic? @ -Acute, acute, acute Uncomplicated (without systemic symptoms) or Complicated (systemic symptoms)? @ -Default Side effects of treatment? @ -No Exacerbation, Progression, or Severe Exacerbation? @ -No Poses a threat to life or bodily function? How? (Chest pain, [place], [place], pneumonia, PE, COPD, DKA, ARF, appy, cholecystitis, CVA, Diverticulitis, Homicidal, Suicidal, threat to staff... and all critical care pts) @ -Threat to metabolism function (Yair Goyal) - Lab Data Lab Results 10/01/23 10/01/23 10/01/23 Range/Units 14:50 14:50 14:50 WBC 7.6 (3.8-10.6) k/uL RBC 5.14 (3.80-5.40) m/uL Hgb 15.1 (11.4-16.0) gm/dL Hct 46.2 H (34.0-46.0) % MCV 89.9 (80.0-100.0) fL MCH 29.3 (25.0-35.0) pg MCHC 32.6 (31.0-37.0) g/dL RDW 12.8 (11.5-15.5) % Plt Count 278 (150-450) k/uL MPV 8.4 Neutrophils % 58 % Lymphocytes % 33 % Monocytes % 5 % Eosinophils % 2 % Basophils % 1 % Neutrophils # 4.4 (1.3-7.7) k/uL Lymphocytes # 2.5 (1.0-4.8) k/uL Monocytes # 0.4 (0-1.0) k/uL Eosinophils # 0.1 (0-0.7) k/uL Basophils # 0.1 (0-0.2) k/uL PT 10.2 (10.0-12.5) sec INR 0.9 (<1.2) APTT 25.3 (22.0-30.0) sec Sodium 140 (137-145) mmol/L Potassium 2.9 L (3.5-5.1) mmol/L Chloride 104 (98-107) mmol/L Carbon Dioxide 25 (22-30) mmol/L Anion Gap 11 mmol/L BUN 13 (7-17) mg/dL Creatinine 0.73 (0.52-1.04) mg/dL Est GFR (CKD-EPI)AfAm >90 (>60 ml/min/1.73 sqM) Est GFR (CKD-EPI)NonAf 88 (>60 ml/min/1.73 sqM) Glucose 132 H (74-99) mg/dL Calcium 9.7 (8.4-10.2) mg/dL Magnesium 1.9 (1.6-2.3) mg/dL Total Bilirubin 1.0 (0.2-1.3) mg/dL AST 22 (14-36) U/L ALT 25 (4-34) U/L Alkaline Phosphatase 123 (38-126) U/L Troponin I (0.000-0.034) ng/mL NT-Pro-B Natriuret Pep 146 pg/mL Total Protein 6.8 (6.3-8.2) g/dL Albumin 4.3 (3.5-5.0) g/dL 10/01/23 Range/Units 14:50 WBC (3.8-10.6) k/uL RBC (3.80-5.40) m/uL Hgb (11.4-16.0) gm/dL Hct (34.0-46.0) % MCV (80.0-100.0) fL MCH (25.0-35.0) pg MCHC (31.0-37.0) g/dL RDW (11.5-15.5) % Plt Count (150-450) k/uL MPV Neutrophils % % Lymphocytes % % Monocytes % % Eosinophils % % Basophils % % Neutrophils # (1.3-7.7) k/uL Lymphocytes # (1.0-4.8) k/uL Monocytes # (0-1.0) k/uL Eosinophils # (0-0.7) k/uL Basophils # (0-0.2) k/uL PT (10.0-12.5) sec INR (<1.2) APTT (22.0-30.0) sec Sodium (137-145) mmol/L Potassium (3.5-5.1) mmol/L Chloride (98-107) mmol/L Carbon Dioxide (22-30) mmol/L Anion Gap mmol/L BUN (7-17) mg/dL Creatinine (0.52-1.04) mg/dL Est GFR (CKD-EPI)AfAm (>60 ml/min/1.73 sqM) Est GFR (CKD-EPI)NonAf (>60 ml/min/1.73 sqM) Glucose (74-99) mg/dL Calcium (8.4-10.2) mg/dL Magnesium (1.6-2.3) mg/dL Total Bilirubin (0.2-1.3) mg/dL AST (14-36) U/L ALT (4-34) U/L Alkaline Phosphatase (38-126) U/L Troponin I <0.012 (0.000-0.034) ng/mL NT-Pro-B Natriuret Pep pg/mL Total Protein (6.3-8.2) g/dL Albumin (3.5-5.0) g/dL Disposition <Raisa Klein - Last Filed: 10/01/23 14:47> Is patient prescribed a controlled substance at d/c from ED?: No Time of Disposition: 20:14 <Yair Goyal - Last Filed: 10/01/23 20:14> Clinical Impression: Hypokalemia Disposition: ADMITTED IP TO THIS HOSP Referrals: Tor Galvan MD [Primary Care Provider] - 1-2 days
[2023-10-01 15:10] LABS: INR 0.9 (<1.2); Partial Thromboplastin Time 25.3 sec (22.0-30.0); Prothrombin Time 10.2 sec (10.0-12.5)
[2023-10-01 15:13] LABS: Basophils # (A) 0.1 k/uL (0-0.2); Basophils % (A) 1 %; Eosinophils # (A) 0.1 k/uL (0-0.7); Eosinophils % (A) 2 %; HCT 46.2 % (34.0-46.0); HGB 15.1 gm/dL (11.4-16.0); Lymphocytes # (A) 2.5 k/uL (1.0-4.8); Lymphocytes % (A) 33 %; MCH 29.3 pg (25.0-35.0); MCHC 32.6 g/dL (31.0-37.0); MCV 89.9 fL (80.0-100.0); Mean Platelet Volume 8.4; Monocytes # (A) 0.4 k/uL (0-1.0); Monocytes % (A) 5 %; Neutrophils # (A) 4.4 k/uL (1.3-7.7); Neutrophils % (A) 58 %; Platelet Count 278 k/uL (150-450); RBC 5.14 m/uL (3.80-5.40); RDW 12.8 % (11.5-15.5); WBC 7.6 k/uL (3.8-10.6)
--- NOTE | 2023-10-01 15:43 | XR ---
EXAMINATION TYPE: XR chest 2V DATE OF EXAM: 10/01/2023 3:21 PM CLINICAL INDICATION:Female, 63 years old with history of dysrhythmia; [facility] COMPARISON: Chest radiographs from 07/25/2023 TECHNIQUE: XR chest 2V Frontal view of the chest. FINDINGS: Lungs/Pleura: There is no evidence of pleural effusion, focal consolidation, or pneumothorax. Pulmonary vascularity: Unremarkable. Heart/mediastinum: Cardiomediastinal silhouette is unremarkable. Musculoskeletal: No acute osseous pathology. Other findings: None IMPRESSION: No acute cardiopulmonary disease/process.
[2023-10-01 15:48] LABS: ALT 25 U/L (4-34); AST 22 U/L (14-36); African American GFR (CKD) >90 (>60 ml/min/1.73 sqM); Albumin 4.3 g/dL (3.5-5.0); Alkaline Phosphatase 123 U/L (38-126); Anion Gap 11 mmol/L; Blood Urea Nitrogen 13 mg/dL (7-17); Calcium 9.7 mg/dL (8.4-10.2); Carbon Dioxide 25 mmol/L (22-30); Chloride 104 mmol/L (98-107); Glucose 132 mg/dL (74-99); Magnesium 1.9 mg/dL (1.6-2.3); Non-African American GFR(CKD) 88 (>60 ml/min/1.73 sqM); Potassium 2.9 mmol/L (3.5-5.1); Sodium 140 mmol/L (137-145); Total Protein 6.8 g/dL (6.3-8.2)
[2023-10-01 15:56] LABS: NT-Pro-B-Type Natriuretic Pept 146 pg/mL
[2023-10-01] MEDS: POTASSIUM CHLORIDE ER 20 MEQ TAB.ER PO STA (16:49)
[2023-10-01] MEDS: FUROSEMIDE 10 MG/ML 4 ML VIAL IV STA ×2 (16:53→21:45)
[2023-10-01] MEDS: POTASSIUM CHLORIDE 10 MEQ in WATER FOR INJECTION 1 100ML.BAG IVPB STA (16:59)
[2023-10-01] MEDS ORDERED: NALOXONE 0.4 MG/ML 1 ML VIAL IV PRN (20:14)
[2023-10-01] MEDS ORDERED: Potassium Replacement Protocol 1 EACH MISC MISCELLANE PRN (20:17)
--- NOTE | 2023-10-01 21:15 | US ---
EXAMINATION TYPE: US venous doppler duplex LE DATE OF EXAM: 10/01/2023 9:00 PM COMPARISON: NONE CLINICAL INDICATION: Female, 63 years old with history of swelling; Bilateral leg swelling. Patient t akes an aspirin daily. No hx of DVT SIDE PERFORMED: Bilateral TECHNIQUE: The lower extremity deep venous system is examined utilizing real time linear array sonog amanda with graded compression, doppler sonography and color-flow sonography. VESSELS IMAGED: Common Femoral Vein Deep Femoral Vein Greater Saphenous Vein * Femoral Vein Popliteal Vein Small Saphenous Vein * Proximal Calf Veins (* superficial vessels) *Slightly limited due to patient body habitus Right Leg: Appears negative for DVT Left Leg: Appears negative for DVT IMPRESSION: No sonographic evidence for deep venous thrombosis in either lower extremities as visuali zed.
[2023-10-01] MEDS ORDERED: Magnesium Replacement Protocol 1 EACH MISC MISCELLANE PRN (21:44)
[2023-10-01] MEDS: ALPRAZolam 0.5 MG TAB PO STA (21:45)
[2023-10-01 23:31] LABS: T4, Free (Free Thyroxine) 2.15 ng/dL (0.78-2.19)
[2023-10-02] MEDS: hydrALAZINE HCL 50 MG TAB PO SCH (06:52)
[2023-10-02] MEDS: POTASSIUM CHLORIDE ER 20 MEQ TAB.ER PO SCH (06:52)
--- NOTE | 2023-10-02 06:52 | P.HPIM ---
History of Present Illness this is a pleasant 63 years old female with past medical history of hypertension and other medical problems She presents because of leg swelling Since July she noticed her legs started getting more swelling. She saw metrology manager Dr. Olivas does were started her on Lasix last Friday past 20 mg daily on the top of her hydrochlorothiazide 25 mg she was taken every day She presents this time with and palpitation and leg cramps She denies chest pain or dyspnea. No change in urine or bowel habits. No headache dizziness weakness 's she has daily headache about 5/10 in severity She denies smoking alcohol or illicit drugs She states she's been drinking a lot of water because she's been told that. Also she was not follow-up about her blood pressure prior to July. On admission patient is afebrile and hemodynamically stable Labs aren't remarkable including CBC, INR, BMP and liver enzymes and troponin Except for potassium was low at 2.9 and 3.1 Ultrasound of the neck is negative for DVT and proBNP is 146 Patient has 2 large cups of water At bedside, patient was counseled to avoid drinking too much water and salt Review of Systems Review of systems CONSTITUTIONAL: No fever, no malaise, no fatigue. HEENT: No recent visual problems or hearing problems. Denied any sore throat. CARDIOVASCULAR: No orthopnea, PND, no palpitations, no syncope. PULMONARY: No shortness of breath, no cough, no hemoptysis. GASTROINTESTINAL: No diarrhea, no nausea, no vomiting, no abdominal pain. Normoactive bowel sounds. NEUROLOGICAL: No headaches, no weakness, no numbness. HEMATOLOGICAL: Denies any bleeding or petechiae. GENITOURINARY: Denies any burning micturition, frequency, or urgency. MUSCULOSKELETAL/RHEUMATOLOGICAL: Denies any joint pain, swelling, or any muscle pain. ENDOCRINE: Denies any polyuria or polydipsia. Past Medical History Past Medical History: Hypertension, Rheumatoid Arthritis (RA) Additional Past Medical History / Comment(s): LOWER BACK RA History of Any Multi-Drug Resistant Organisms: None Reported Past Surgical History: Cholecystectomy, Heart Catheterization, Hysterectomy Past Psychological History: No Psychological Hx Reported Smoking Status: Never smoker Past Alcohol Use History: Occasional Past Drug Use History: None Reported Medications and Allergies Home Medications Medication Instructions Recorded Confirmed Type Lisinopril-Hctz 20-25 mg 1 tab PO DAILY 10/12/14 10/01/23 History [Zestoretic 20-25] Cyanocobalamin [Vitamin B-12] 500 mcg PO DAILY 07/25/23 10/01/23 History Cholecalciferol (Vitamin D3) 50 mcg PO DAILY 10/01/23 10/01/23 History [Vitamin D3 (50 Mcg = 2000 Iu)] Furosemide [Lasix] 20 mg PO DAILY 10/01/23 10/01/23 History Magnesium 250 mg PO DAILY 10/01/23 10/01/23 History Potassium Chloride ER [K-Dur 10] 10 meq PO DAILY 10/01/23 10/01/23 History hydrALAZINE HCL [Apresoline] 50 mg PO TID-W/MEALS 10/01/23 10/01/23 History Allergies Allergy/AdvReac Type Severity Reaction Status Date / Time atorvastatin [From Lipitor] AdvReac Muscle pain Verified 10/01/23 17:44 ropinirole [From Requip] AdvReac Chest Pain Verified 10/01/23 17:44 Physical Exam Vitals: Vital Signs Temp Pulse Resp BP Pulse Ox 10/02/23 05:23 59 L 18 161/71 97 10/02/23 01:43 70 16 128/48 98 10/01/23 21:50 70 16 168/76 96 10/01/23 19:57 71 16 164/69 96 10/01/23 18:12 98.5 F 66 16 151/61 99 10/01/23 16:36 97.7 F 71 18 153/71 96 10/01/23 14:32 98 F 80 18 132/61 98 Intake and Output 10/01/23 10/01/23 10/02/23 14:59 22:59 06:59 Other: Weight 90.718 kg GENERAL: The patient is alert and oriented x3, not in any acute distress. Well developed, well nourished. HEENT: Pupils are round and equally reacting to light. EOMI. No scleral icterus. No conjunctival pallor. Normocephalic, atraumatic. No pharyngeal erythema. No thyromegaly. CARDIOVASCULAR: S1 and S2 present. No murmurs, rubs, or gallops. PULMONARY: Chest is clear to auscultation, no wheezing , no crackles. ABDOMEN: Soft, nontender, nondistended, normoactive bowel sounds. No palpable organomegaly. MUSCULOSKELETAL: No joint swelling or deformity. -EXTREMITIES: No cyanosis, clubbing, . 1+ bilateral pitting leg edema. NEUROLOGICAL: Gross neurological examination did not reveal any focal deficits. SKIN: No rashes. no petechiae. Results CBC & Chem 7: 10/01/23 14:50 10/01/23 22:00 Labs: Abnormal Lab Results - Last 24 Hours (Table) 10/01/23 10/01/23 10/01/23 Range/Units 14:50 14:50 22:00 Hct 46.2 H (34.0-46.0) % Potassium 2.9 L 3.1 L (3.5-5.1) mmol/L Glucose 132 H (74-99) mg/dL Assessment and Plan Assessment: Bilateral pitting leg edema most likely secondary to uncontrolled high blood pressure, lack of exercise and high water consumption. Hypokalemia secondary to diuretics Hypertension Overweight with a BMI 28.7 history of rheumatoid arthritis Plan: Construction Technician has been consulted Patient currently on 2 diuretics Lasix and hydrochlorothiazide and 2, and to discontinue 1 and use only one upon discharge. Adequate his outcome be stopped and wrist on Lasix 40 mg once daily Patient says she takes potassium supplement from her PCP Dr. Galvan. I would recommend to replace potassium monitor magnesium and patient can follow up in 2- 3 days to check her potassium level of her PCP GI and DVT prophylaxis Resume home medication Monitor blood pressure Minus replace potassium and magnesium We can discharge patient home was cleared by metrology manager
[2023-10-02] MEDS: LISINOPRIL-HCTZ 20-25 MG 1 EACH TAB PO SCH (08:31)
[2023-10-02] MEDS: CHOLECALCIFEROL 25 MCG (1000 IU) TABLET PO SCH (08:31)
[2023-10-02] MEDS: CYANOCOBALAMIN 500 MCG TAB PO SCH (08:32)
[2023-10-02] MEDS: POTASSIUM CHLORIDE ER 10 MEQ TAB.ER.PRT PO SCH (08:32)
[2023-10-02] MEDS: FUROSEMIDE 20 MG TAB PO SCH (08:32)
[2023-10-02] MEDS: MAGNESIUM OXIDE 400 MG TAB PO SCH (08:32)
[2023-10-02 10:54] LABS: Phosphorus 3.2 mg/dL (2.4-5.1)
[2023-10-02] MEDS: SPIRONOLACTONE 25 MG TAB PO SCH (13:50)
--- NOTE | 2023-10-02 14:44 | P.CRDCN ---
History of Present Illness History of present illness: This is Dr. Gonzalez dictating a consult on this patient The patient was interviewed and examined IMPRESSION / ASSESSMENT: Uncontrolled hypertension specially since July of this year Palpitations pounding in the chest Patient complaining of swelling in the legs, recurrent, associated with elevations in blood pressure Normal cardiac enzymes Hypokalemia, normal renal function No evidence for DVT PLAN: Stop lisinopril hydrochlorothiazide stop hydralazine Start valsartan 160 mg twice daily Start p.o. spironolactone, 25 mg p.o. daily 2D echo and Doppler study to assess cardiac structure and function given her symptoms of bilateral lower extremity edema and uncontrolled hypertension Renal artery Dopplers to look for renal artery stenosis Stop IV Lasix HPI Patient presented with swelling in her extremities and palpitations She stated her blood pressure was elevated for several weeks Twelve-lead EKG shows sinus rhythm with nonspecific ST segment abnormality and isolated Q-wave in lead III ROS: No fever chills or rigors, no cough, phlegm or expectoration, no nausea, vomiting or diarrhea, no hematuria, dysuria, no musculoskeletal complaints, no strokes or seizures, no skin lesions. EXAMINATION: Blood pressure 160/80 mmHg and higher, pulse rate in the 70s Heart sounds are normal Breath sounds are clear REVIEW OF LABS, ECG & MEDICAL DATA Home medications include hydralazine potassium Lasix magnesium lisinopril hydrochlorothiazide Reviewed normal hemoglobin normal white count Severe hypokalemia of 2.9 normal renal function Normal sodium Normal TSH Normal liver function tests Normal troponin Normal NT proBNP Past Medical History Past Medical History: Hypertension, Rheumatoid Arthritis (RA) Additional Past Medical History / Comment(s): LOWER BACK RA History of Any Multi-Drug Resistant Organisms: None Reported Past Surgical History: Cholecystectomy, Heart Catheterization, Hysterectomy Past Psychological History: No Psychological Hx Reported Smoking Status: Never smoker Past Alcohol Use History: Occasional Past Drug Use History: None Reported Medications and Allergies Home Medications Medication Instructions Recorded Confirmed Type Lisinopril-Hctz 20-25 mg 1 tab PO DAILY 10/12/14 10/01/23 History [Zestoretic 20-25] Cyanocobalamin [Vitamin B-12] 500 mcg PO DAILY 07/25/23 10/01/23 History Cholecalciferol (Vitamin D3) 50 mcg PO DAILY 10/01/23 10/01/23 History [Vitamin D3 (50 Mcg = 2000 Iu)] Furosemide [Lasix] 20 mg PO DAILY 10/01/23 10/01/23 History Magnesium 250 mg PO DAILY 10/01/23 10/01/23 History Potassium Chloride ER [K-Dur 10] 10 meq PO DAILY 10/01/23 10/01/23 History hydrALAZINE HCL [Apresoline] 50 mg PO TID-W/MEALS 10/01/23 10/01/23 History Allergies Allergy/AdvReac Type Severity Reaction Status Date / Time atorvastatin [From Lipitor] AdvReac Muscle pain Verified 10/01/23 17:44 ropinirole [From Requip] AdvReac Chest Pain Verified 10/01/23 17:44 Physical Exam Vitals: Vital Signs Temp Pulse Resp BP Pulse Ox 10/02/23 10:19 97.6 F 71 16 161/77 97 10/02/23 05:23 59 L 18 161/71 97 10/02/23 01:43 70 16 128/48 98 10/01/23 21:50 70 16 168/76 96 10/01/23 19:57 71 16 164/69 96 10/01/23 18:12 98.5 F 66 16 151/61 99 10/01/23 16:36 97.7 F 71 18 153/71 96 10/01/23 14:32 98 F 80 18 132/61 98 Results 10/01/23 14:50 10/01/23 22:00 Cardiac Enzymes 10/01/23 10/01/23 Range/Units 14:50 14:50 AST 22 (14-36) U/L Troponin I <0.012 (0.000-0.034) ng/mL Coagulation 10/01/23 Range/Units 14:50 PT 10.2 (10.0-12.5) sec APTT 25.3 (22.0-30.0) sec CBC 10/01/23 Range/Units 14:50 WBC 7.6 (3.8-10.6) k/uL RBC 5.14 (3.80-5.40) m/uL Hgb 15.1 (11.4-16.0) gm/dL Hct 46.2 H (34.0-46.0) % Plt Count 278 (150-450) k/uL Comprehensive Metabolic Panel 10/01/23 10/01/23 Range/Units 14:50 22:00 Sodium 140 (137-145) mmol/L Potassium 2.9 L 3.1 L (3.5-5.1) mmol/L Chloride 104 (98-107) mmol/L Carbon Dioxide 25 (22-30) mmol/L BUN 13 (7-17) mg/dL Creatinine 0.73 (0.52-1.04) mg/dL Glucose 132 H (74-99) mg/dL Calcium 9.7 (8.4-10.2) mg/dL AST 22 (14-36) U/L ALT 25 (4-34) U/L Alkaline Phosphatase 123 (38-126) U/L Total Protein 6.8 (6.3-8.2) g/dL Albumin 4.3 (3.5-5.0) g/dL Current Medications Generic Name Dose Route Start Last Admin Trade Name Freq PRN Reason Stop Dose Admin Cholecalciferol 50 mcg 10/02/23 09:00 10/02/23 08:31 Cholecalciferol 25 Mcg (1000 Iu) Tablet PO 50 mcg DAILY OSWALD Administration Cyanocobalamin 500 mcg 10/02/23 09:00 10/02/23 08:32 Cyanocobalamin 500 Mcg Tab PO 500 mcg DAILY OSWALD Administration Furosemide 20 mg 10/02/23 09:00 10/02/23 08:32 Furosemide 20 Mg Tab PO 20 mg DAILY OSWALD Administration Hydralazine HCl 50 mg 10/02/23 07:30 10/02/23 06:52 Hydralazine Hcl 50 Mg Tab PO 50 mg TID-W/MEALS OSWALD Administration Magnesium Oxide 200 mg 10/02/23 09:00 10/02/23 08:32 Magnesium Oxide 400 Mg Tab PO 200 mg DAILY OSWALD Administration Miscellaneous Information 1 each 10/01/23 20:17 Potassium Replacement Protocol 1 Each Misc MISCELLANE DAILY PRN Per Protocol Protocol Miscellaneous Information 1 each 10/01/23 21:44 Magnesium Replacement Protocol 1 Each Misc MISCELLANE DAILY PRN Per Protocol Protocol Naloxone HCl 0.2 mg 10/01/23 20:14 Naloxone 0.4 Mg/Ml 1 Ml Vial IV Q2M PRN Opioid Reversal Potassium Chloride 10 meq 10/02/23 09:00 10/02/23 08:32 Potassium Chloride Er 10 Meq Tab.Er.Prt PO 10 meq DAILY OSWALD Administration Spironolactone 25 mg 10/02/23 13:00 Spironolactone 25 Mg Tab PO DAILY [facility] Valsartan 160 mg 10/02/23 13:00 Valsartan 160 Mg Tab PO BID [facility] 10/01/23 14:50 10/01/23 22:00
[2023-10-02 16:50] LABS: Potassium 3.6 mmol/L (3.5-5.1)
[2023-10-02] MEDS: VALSARTAN 160 MG TAB PO SCH (17:10)
--- NOTE | 2023-10-02 18:15 | CA ---
Transthoracic Echo Report Name: Roseline Anderson Age: 63 Gender: F : 1960 Exam Date: 10/02/2023 14:52 Exam Location: [facility] Ht (in): 70 Wt (lb): 200 Ordering Physician: Sean Gonzalez MD ([id number]) Attending/Referring Phys: Power Barker Sarita Elliott RDCS Procedure CPT: Indications: LE edema, HTN Cardiac Hx: Technical Quality: Technically difficult study Contrast 1: Total Dose (mL): Contrast 2: Total Dose (mL): MEASUREMENTS (Male / Female) Normal Values 2D ECHO LV Diastolic Diameter PLAX 4.2 cm 4.2 - 5.9 / 3.9 - 5.3 cm LV Systolic Diameter PLAX 2.9 cm IVS Diastolic Thickness 1.2 cm 0.6 - 1.0 / 0.6 - 0.9 cm LVPW Diastolic Thickness 1.2 cm 0.6 - 1.0 / 0.6 - 0.9 cm LV Relative Wall Thickness 0.6 RV Internal Dim ED PLAX 3.3 cm LA Systolic Diameter LX 3.1 cm 3.0 - 4.0 / 2.7 - 3.8 cm M-MODE Aortic Root Diameter MM 3.3 cm AV Cusp Separation MM 2.3 cm DOPPLER AV Peak Velocity 163.9 cm/s AV Peak Gradient 10.8 mmHg MV Area PHT 2.5 cm??? Mitral E Point Velocity 58.0 cm/s Mitral A Point Velocity 60.0 cm/s Mitral E to A Ratio 1.0 MV Deceleration Time 300.0 ms TR Peak Velocity 254.4 cm/s TR Peak Gradient 25.9 mmHg Right Ventricular Systolic Press 30.6 mmHg FINDINGS Left Ventricle Left ventricular ejection fraction is estimated at 55-60 %. Left ventricular cavity size normal. Mildly increased septal wall thickness. Mildly increased posterior wall thickness. Right Ventricle Mild right ventricular dilatation. Right ventricular systolic pressure within normal limits. Right Atrium Right atrium not well visualized. Left Atrium Normal left atrial size. No left atrial thrombus or mass present. Mitral Valve Structurally normal mitral valve. No mitral stenosis, regurgitation or prolapse. Aortic Valve Trileaflet aortic valve. No aortic valve stenosis or regurgitation. Tricuspid Valve Structurally normal tricuspid valve. Mild tricuspid regurgitation. Pulmonic Valve Pulmonic valve not well visualized. No pulmonic regurgitation. Pericardium No pericardial effusion. Aorta Normal size aortic root and proximal ascending aorta. CONCLUSIONS Diagnosis Hypertension, lower extremity edema Preserved LV systolic function with increased LV mass Mild RV enlargement Previewed by: Dr. Sean Gonzalez MD (Electronically Signed) Final Date: 02 October 2023 18:14
[2023-10-03 02:32] VITALS: RESP 16
[2023-10-03 07:56] VITALS: BP 136/76; PULSE 61; TEMP 97.9
--- NOTE | 2023-10-03 08:56 | US ---
EXAMINATION TYPE: US renal artery duplex complet DATE OF EXAM: 10/03/2023 COMPARISON: NONE CLINICAL INDICATION: Female, 63 years old with history of Recently uncontrolled hypertension despite medical; HTN for 3 months MEASUREMENTS: RENAL SIZE: Right Kidney: 11.4 x 3.9 x 4.3cm Left Kidney: 12.6 x 5.2 x 4.9cm Right Kidney: appears lobulated Left Kidney: no evidence of hydronephrosis Abd Aorta: visualized portions appear wnl RESISTANCE INDEX Right: 0.68 Left: 0.65 RA/AO RATIO (< 3.5 ) Right: 2.0 Left: 1.8 RENAL ARTERY VELOCITY ( < 180 cm/s) Right: 183.8cm/s Left: 162.2cm/s [employer] Teacher Notes: Technical limitations due to patient's body habitus and large amount of overlyi ng bowel gas. Bilateral renal arteries only seen in short segments. Right renal artery appears slight ly elevated IMPRESSION: Mild right renal artery stenosis suggested. No evidence of significant left renal artery stenosis.
--- NOTE | 2023-10-03 12:28 | P.PN ---
Progress Note - Text Patient is doing very well. She stated that every night she would experience night sweats and for the very first time yesterday night she had no such episodes Her blood pressure is very well-controlled on valsartan. 137/71 and 136/76 mmHg Afebrile Pulse rate in the 50s and 60s Heart sounds are normal Breath sounds are clear Impression Uncontrolled hypertension/hypertensive urgency despite hydralazine lisinopril hydrochlorothiazide Hypokalemia in the setting of hydralazine Conn syndrome should be ruled out I sent serum aldosterone levels plasma renin activity and metanephrines Her renal artery Doppler study was performed and shows very mild stenosis that is not clinically significant Cortisol level normal 7.3 TSH normal at 2.2 Troponins normal and renal function normal Plan Stop lisinopril hydrochlorothiazide Stop Lasix Stop oral potassium Stop hydralazine Start valsartan 160 mg twice daily and spironolactone 25 mg p.o. daily Patient may go home today from a cardiac standpoint and follow-up with her primary breakfast hostess Home blood pressure monitoring Low-salt diet Consideration for statins in the future
--- NOTE | 2023-10-04 13:59 | P.DS ---
Providers Date of admission: 10/01/23 20:15 Expected date of discharge: 10/03/23 Attending physician: Angle Gant Consults: 10/01/23 20:14 Consult Physician Routine Consulting Provider: Dmitry Olivas Consult Reason/Comments: Edema, palpitations, hypokalemia Do you want consulting provider notified?: Yes, Notify in am Primary care physician: Tor Galvan Hospital Course: Final diagnosis Bilateral pitting leg edema most likely secondary to uncontrolled high blood pressure, lack of exercise and high water consumption. Hypokalemia secondary to diuretics Hypertension Overweight with a BMI 28.7 history of rheumatoid arthritis gi prophylaxis dvt prophylaxis full code Discharge disposition Patient is being discharged in a stable condition with guarded prognosis to [facility]. Patient will follow-up with Dr. Galvan in the outpatient setting upon discharge. Patient is to continue with current medications and outpatient follow-up with cardiology As scheduled. Total time taken is greater than 35 minutes. Hospital course This is a 63-year-old female who was recently admitted with hypertension bilateral lower extremity edema being closely monitored with cardiology viv simmons. Patient with medication adjustments recommending outpatient follow-up with Dr. Gonzalez. Please refer to cardiology notes for further HPI. Patient reports to feeling much improved and would like to go home. Currently no reports of chest pain, shortness of breath, or palpitations. Patient is afebrile. No reports of nausea or vomiting and patient is tolerating diet. Patient will be discharged home today. Guarded prognosis Physical exam: Gen: This is a 63-year-old female who is awake, alert and oriented x 3, well- developed, well-nourished HEENT: Head is atraumatic, normocephalic. Pupils equal, round. Sclerae is anicteric. NECK: Supple. No JVD. No lymphadenopathy. No thyromegaly. LUNGS: Clear to auscultation. No wheezes or rhonchi. No intercostal retractions. HEART: Regular rate and rhythm. No murmur. ABDOMEN: Soft. Bowel sounds are present. No masses. No tenderness. EXTREMITIES: No pedal edema. No calf tenderness. Lower extremity edema improved NEUROLOGICAL: Patient is awake, alert and oriented x3. Cranial nerves 2 through 12 are grossly intact. Please refer to medication reconciliation sheet for a list of medications. The impression and plan of care has been dictated by Lucina Swenson Nurse Practitioner as directed. Dr. Cyn MD I have performed a history and examination and MDM of this patient, discussed the same with the dictator, and agree with the dictator's assessment and plan as written ,documented as a scribe. Based on total visit time, I have performed more than 50% of the visit. Patient Condition at Discharge: Stable Plan - Discharge Summary Discharge Rx Participant: No New Discharge Prescriptions: New Spironolactone [Aldactone] 25 mg PO DAILY #30 tab Valsartan 320 mg PO DAILY #30 tab Potassium Chloride ER [K-Dur 10] 10 meq PO DAILY #30 tab Continue Cyanocobalamin [Vitamin B-12] 500 mcg PO DAILY Magnesium 250 mg PO DAILY Cholecalciferol (Vitamin D3) [Vitamin D3 (50 Mcg = 2000 Iu)] 50 mcg PO DAILY Discontinued Lisinopril-Hctz 20-25 mg [Zestoretic 20-25] 1 tab PO DAILY hydrALAZINE HCL [Apresoline] 50 mg PO TID-W/MEALS Potassium Chloride ER [K-Dur 10] 10 meq PO DAILY Furosemide [Lasix] 20 mg PO DAILY Discharge Medication List Cyanocobalamin [Vitamin B-12] 500 mcg PO DAILY 07/25/23 [History] Cholecalciferol (Vitamin D3) [Vitamin D3 (50 Mcg = 2000 Iu)] 50 mcg PO DAILY 10/01/23 [History] Magnesium 250 mg PO DAILY 10/01/23 [History] Potassium Chloride ER [K-Dur 10] 10 meq PO DAILY #30 tab 10/03/23 [Rx] Spironolactone [Aldactone] 25 mg PO DAILY #30 tab 10/03/23 [Rx] Valsartan 320 mg PO DAILY #30 tab 10/03/23 [Rx] Follow up Appointment(s)/Referral(s): Tor Galvan MD [Primary Care Provider] - 1-2 days Dmitry Olivas MD [STAFF PHYSICIAN] - 10/14/23 9:30 am Patient Instructions/Handouts: Hypokalemia (DC) Activity/Diet/Wound Care/Special Instructions: Activity limited until follow-up Follow-up with primary care provider on discharge Follow-up with cardiology outpatient Continue taking medications as prescribed Discharge Disposition: HOME SELF-CARE
[2023-10-29 15:00] LABS: Normetanephrine, Free 208 pg/mL (< OR = 148); Total, Free (MN + NMN) 208 pg/mL (< OR = 205)
== END 2023-10-03 13:15 | disposition home or self-care (01) ==
LOC: EC 14:22 → 6NMEDSUR 20:15
PROVIDERS: ADMIT Hospitalist; ATTEND Hospitalist
DX: R60.0 Localized edema (principal); E87.6 Hypokalemia; I10 Essential (primary) hypertension; R00.2 Palpitations; M06.9 Rheumatoid arthritis, unspecified; E66.3 Overweight; Z68.28 Body mass index [BMI] 28.0-28.9, adult; Z79.899 Other long term (current) drug therapy
CPT/HCPCS: 36415; 93005; 93306; 83835; 84439; 84481; 83880; 80053; 82533; 82088; 84244; 83735 ×2; 84100; 84132 ×2; 84443; 84484; 85025; 85610; 85730; 71046; 93975; 93970; G0378 ×3; J1940; Q9957; J3480; 96365; 96375; 96376; 99285

== ENCOUNTER → 2024-05-14 | Outpatient (CLI) | payer BC, MEDICARE ==
[2024-05-14 10:44] LABS: Basophils # (A) 0.13 X 10*3/uL (0.00-0.10); Eosinophils # (A) 0.22 X 10*3/uL (0.04-0.35); Eosinophils % (A) 1.7 %; HCT 49.8 % (37.2-46.3); HGB 16.1 g/dL (12.0-15.0); Lymphocytes # (A) 3.58 X 10*3/uL (0.90-5.00); Lymphocytes % (A) 27.8 %; MCH 29.4 pg (27.0-32.0); MCHC 32.3 g/dL (32.0-37.0); MCV 90.9 FL (80.0-97.0); Mean Platelet Volume 10.6 FL (9.5-12.2); Monocytes # (A) 0.93 X 10*3/uL (0.20-1.00); Monocytes % (A) 7.2 %; NRBC Per 100 WBC 0 X 10*3/uL (0.00-0.01); Neutrophils # (A) 7.97 X 10*3/uL (1.80-7.70); Neutrophils % (A) 61.9 %; Platelet Count 312 X 10*3/uL (140-440); RBC 5.48 X 10*6/uL (4.10-5.20); RDW 12.9 % (11.5-14.5); WBC 12.88 X 10*3/uL (4.50-10.00)
--- NOTE | 2024-05-14 10:51 | MM ---
Reason for Exam: Screening (asymptomatic). Last screening mammogram was performed 12 month(s) ago. Patient History: Menarche at age 11. First Full-Term at age 27. Left ovary removed at age 31. Right ovary removed at age 31. Hysterectomy at age 31. Postmenopausal. Maternal aunt had breast cancer at or over age 50. Maternal aunt had breast cancer under age 50. Maternal aunt had breast cancer at or over age 50. Mother had breast cancer, age 39. Risk Values: Marleni 5 year model risk: 3.3%. NCI Lifetime model risk: 12.0%. Prior Study Comparison: 01/19/2018 Bilateral Screening Mammogram, [facility]. 08/02/2021 Bilateral MG screening mammo w CAD, [facility]. 05/19/2023 Bilateral MG screening mammo w CAD, [facility]. Tissue Density: The breasts are extremely dense, which lowers the sensitivity of mammography. Findings: Analyzed By CAD. There is no suspicious group of microcalcifications or new suspicious mass in either breast. Overall Assessment: Negative, BI-RAD 1 Management: Screening Mammogram of both breasts in 1 year. Patient should continue monthly self-breast exams. A clinical breast exam by your physician is recommended on an annual basis. This exam should not preclude additional follow-up of suspicious palpable abnormalities. Note on Marleni scores and lifetime risk: 1. A Marleni score greater than 3% is considered moderate risk. If this is the case, consider specialist referral to assess eligibility for a risk reducing agent. 2. If overall lifetime risk for the development of breast cancer is 20% or higher, the patient may qualify for future screening with alternating mammogram and breast MRI. [facility], , 05/14/2024 7:31 AM. Electronically signed and approved by: Booker Cedeño M.D. Radiologis
[2024-05-14 11:14] LABS: ALT 14 U/L (8-44); AST 13 U/L (13-35); Albumin 4.3 g/dL (3.8-4.9); Albumin/Globulin Ratio 1.59 Ratio (1.60-3.17); Alkaline Phosphatase 177 U/L (41-126); BUN/Creat Ratio 20.67 Ratio (12.00-20.00); Blood Urea Nitrogen 18.6 mg/dL (9.0-27.0); Calcium 9.8 mg/dL (8.7-10.3); Carbon Dioxide 27.4 mmol/L (21.6-31.8); Chloride 100 mmol/L (96-109); Globulin 2.7 g/dL (1.6-3.3); Glucose 94 mg/dL (70-110); LDL Cholesterol,Calculated 116.7 mg/dL (0.0-131.0); Potassium 4.7 mmol/L (3.5-5.5); Sodium 140 mmol/L (135-145); Total Bilirubin 0.5 mg/dL (0.3-1.2); VLDL Calculation 14.98 mg/dL (5.00-40.00)
== END | disposition home or self-care (01) ==
LOC: RADMAMWWP 07:15
PROVIDERS: ATTEND Family Medicine
DX: Z12.31 Encounter for screening mammogram for malignant neoplasm of breast (principal); R92.343 Mammographic extreme density, bilateral breasts; Z78.0 Asymptomatic menopausal state; Z80.3 Family history of malignant neoplasm of breast
CPT/HCPCS: 77063; 77067; 80053; 80061; 82306; 84443; 85025

== ENCOUNTER → 2024-07-14 | Outpatient (CLI) | payer BC ==
--- NOTE | 2024-07-14 12:42 | NM ---
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 After the administration of 5.39 mCi I-123 Ioflupane DaTscan. Images obtained 3 hours p ost injection. SPECT images of the brain were acquired with axial and coronal reconstructions. FINDINGS: Normal radiotracer uptake is seen throughout the bilateral striata. IMPRESSION: Normal study. [facility], , 07/14/2024 12:40 PM
== END | disposition home or self-care (01) ==
LOC: RADNMMAIN 06:53
PROVIDERS: ATTEND Psychiatry & Neurology Neurology
DX: G25.82 Stiff-man syndrome (principal); G62.9 Polyneuropathy, unspecified; R20.8 Other disturbances of skin sensation; M25.50 Pain in unspecified joint; M79.12 Myalgia of auxiliary muscles, head and neck
CPT/HCPCS: 78803; A9584

== ENCOUNTER → 2024-08-16 | Outpatient (CLI) | payer BC ==
--- NOTE | 2024-08-16 16:06 | US ---
EXAMINATION TYPE: US mass soft tissue chest/back DATE OF EXAM: 08/16/2024 COMPARISON: NONE CLINICAL INDICATION: Female, 64 years old with history of D17.9 LYMPHOMA, R10.9; Multiple lumps lowe r back painful. TECHNIQUE: FINDINGS: Scanned lower back lump areas. Multiple echogenic areas seen with shadowing largest 1 cm. Calcification could be considered. CT may be useful for additional evaluation IMPRESSION: Highly echogenic area within the soft tissues with posterior shadowing could be calcific ation. CT may be useful for additional evaluation. [facility], , 08/16/2024 4:03 PM
== END | disposition home or self-care (01) ==
LOC: RADUSWWP 15:18
PROVIDERS: ATTEND Psychiatry & Neurology Neurology
DX: D17.9 Benign lipomatous neoplasm, unspecified (principal)